=== PATIENT | male | born 1955 | race Caucasian/White ===

== ENCOUNTER 2020-01-02 13:11 | Inpatient (IN) | payer BC ==
[~2020-01-02] VITALS: Ht 188 cm; Wt 98.4 kg
[2020-01-02 13:23] VITALS: Ht 188 cm; Wt 98.4 kg
[2020-01-02 14:04] LABS: BASOPHIL % 0.4 % (0-2); PLATELET COUNT 215 x10^3mcL (130-400); RED CELL DISTRIBUTION WIDTH 20.9 % (11.5-14.5)
[2020-01-02 14:07] LABS: CALCIUM 7.8 mg/dL (8.5-10.1); CARBON DIOXIDE 26.3 mmol/L (21-32); CREATININE SERUM 1.4 mg/dL (0.7-1.3); POTASSIUM SERUM 3.1 mmol/L (3.5-5.1)
[2020-01-02 14:11] LABS: BILIRUBIN TOTAL 1.5 mg/dL (0.20-1.00); TOTAL PROTEIN, SERUM 7.5 g/dL (6.4-8.2)
[2020-01-02 14:14] LABS: ALBUMIN 1.7 g/dL (3.4-5.0)
[2020-01-02 16:30] LABS: microscopic required? YES; urine erythrocyte 2+ (NEGATIVE)
[2020-01-02 16:37] LABS: AMPHETAMINE QUAL UR NONE DETECTED (See below)
[2020-01-02] MEDS ORDERED: NAFCILLIN2 GM IV (16:39)
[2020-01-02] MEDS ORDERED: ZANAFLEX CAPSULE4 MG PO (16:40)
[2020-01-02] MEDS ORDERED: NABUMETONE750 MG PO (16:40)
[2020-01-02] MEDS ORDERED: IRON325 M3 PO (16:41)
[2020-01-02] MEDS ORDERED: LOTENSIN20 MG PO (16:41)
[2020-01-02] MEDS ORDERED: ZINC SULFATE220 M2 PO (16:42)
[2020-01-02] MEDS ORDERED: COMPLETE SENIOR1 TA1 PO (16:42)
[2020-01-02] MEDS ORDERED: DULCOLAX10 M1 PR (16:43)
[2020-01-02] MEDS ORDERED: OXYCODONE HCL20 M1 PO (16:43)
[2020-01-02] MEDS ORDERED: MOM PO (16:43)
[2020-01-02 17:35] VITALS: BP 186/102
[2020-01-02 20:32] VITALS: BP 161/82
[2020-01-03 05:23] VITALS: BP 165/88
[2020-01-03 06:21] LABS: BASOPHIL % 0.2 % (0-2); PLATELET COUNT 195 x10^3mcL (130-400)
[2020-01-03 06:32] LABS: RED CELL DISTRIBUTION WIDTH 20.6 % (11.5-14.5)
[2020-01-03 06:46] LABS: CALCIUM 8.2 mg/dL (8.5-10.1); CARBON DIOXIDE 28.4 mmol/L (21-32); CREATININE SERUM 1.3 mg/dL (0.7-1.3); MAGNESIUM 1.6 mg/dL (1.8-2.4); PHOSPHOROUS 3.6 mg/dL (2.5-4.9); POTASSIUM SERUM 3.1 mmol/L (3.5-5.1)
[2020-01-03 09:03] VITALS: BP 168/87
[2020-01-03 09:57] LABS: rbc morphology (normal/abnorm) ABNORMAL (NORMAL); tear drop cell (dacryocyte) 1+
[2020-01-03 13:25] LABS: SOURCE FLUID PARACENTESIS
[2020-01-03 13:26] LABS: APPEARANCE FLUID CLOUDY; COLOR FLUID PALE YELLOW; RBC FLUID 69 /cumm; WBC FLUID 223 /cumm
[2020-01-03 13:33] LABS: LYMPHOCYTE FLUID 25 %; MONOCYTE FLUID 65 %
[2020-01-03 17:12] VITALS: BP 150/80
[2020-01-03 20:15] VITALS: BP 159/87
[2020-01-04 05:42] VITALS: BP 167/101
[2020-01-04 06:54] LABS: BASOPHIL % 0.5 % (0-2); PLATELET COUNT 157 x10^3mcL (130-400)
[2020-01-04 07:41] LABS: RED CELL DISTRIBUTION WIDTH 20.8 % (11.5-14.5)
[2020-01-04 07:57] LABS: CALCIUM 7.7 mg/dL (8.5-10.1); CARBON DIOXIDE 30.2 mmol/L (21-32); CHLORIDE SERUM 103 mmol/L (98-107); CREATININE SERUM 1.1 mg/dL (0.7-1.3); GFR1 > 60 mL/min; GLUCOSE SERUM 108 mg/dL (74-106); MAGNESIUM 1.3 mg/dL (1.8-2.4); PHOSPHOROUS 2.9 mg/dL (2.5-4.9); SODIUM SERUM 138 mmol/L (136-145)
[2020-01-04 08:01] VITALS: BP 154/78
[2020-01-04 08:10] LABS: POTASSIUM SERUM 2.8 mmol/L (3.5-5.1)
[2020-01-04 12:26] VITALS: BP 147/85
[2020-01-04 17:36] VITALS: BP 137/79
[2020-01-04 22:53] VITALS: BP 86/54
[2020-01-04 23:30] VITALS: BP 100/61
[2020-01-05 05:17] VITALS: BP 106/62
[2020-01-05 06:23] LABS: BASOPHIL % 0.5 % (0-2)
[2020-01-05 07:03] LABS: PLATELET COUNT 117 x10^3mcL (130-400); RED CELL DISTRIBUTION WIDTH 20.5 % (11.5-14.5)
[2020-01-05 08:01] LABS: CARBON DIOXIDE 28.9 mmol/L (21-32); CHLORIDE SERUM 104 mmol/L (98-107); CREATININE SERUM 1.1 mg/dL (0.7-1.3); GFR1 > 60 mL/min; GLUCOSE SERUM 106 mg/dL (74-106); MAGNESIUM 1.8 mg/dL (1.8-2.4); PHOSPHOROUS 3.6 mg/dL (2.5-4.9); SODIUM SERUM 143 mmol/L (136-145)
[2020-01-05 08:35] VITALS: BP 100/55
[2020-01-05 12:16] VITALS: BP 87/52
[2020-01-05 16:41] VITALS: BP 87/52
[2020-01-05 16:50] VITALS: BP 91/48
== END 2020-01-05 19:30 | DRG 433 ==
LOC: ED 13:11 → DU 16:11 → MU 16:11 → DU 16:24 → MU 01-04 16:46
PROVIDERS: Emergency Medicine; Internal Medicine; Internal Medicine Gastroenterology; ADMIT Family Medicine
PROC: 0W9G3ZZ Drainage of Peritoneal Cavity, Percutaneous Approach (ICD-10-PCS; 2020-01-03)
PROC: 0DB68ZX Excision of Stomach, Via Natural or Artificial Opening Endoscopic, Diagnostic (ICD-10-PCS; principal; 2020-01-05 10:30)
DX: K74.60 Unspecified cirrhosis of liver (principal); R18.8 Other ascites; E83.51 Hypocalcemia; B19.20 Unspecified viral hepatitis C without hepatic coma; I50.9 Heart failure, unspecified; D63.8 Anemia in other chronic diseases classified elsewhere; E87.6 Hypokalemia; I16.0 Hypertensive urgency; Z90.49 Acquired absence of other specified parts of digestive tract
CPT/HCPCS: 43235; 49083; 88329; 88344; 97112-GP; 97116-GP; 97530-GP; C1729; G0378; J0696; J1170; J1200; J1610; J1940; J2250; J2270; J2310; J2405; J2765; J3010; J3475; J3480; J3490; J7040; J7050; Q0092